=== PATIENT | male | born 1945 | race Caucasian/White ===

== ENCOUNTER 2018-08-31 10:14 | Day surgery (SDC) | payer MEDICARE, OTHER ==
[2018-08-31 11:02] VITALS: RESP 16; TEMP 98.7
[2018-08-31] MEDS: LACTATED RINGERS 1,000 ML IV SCH ×2 (11:03→11:04)
[2018-08-31] MEDS ORDERED: PROPOFOL 10 MG/ML 20 ML VIAL IV ONE (11:05)
--- NOTE | 2018-08-31 11:22 | P.PCN ---
Date of Procedure: 08/31/18 Procedure(s) Performed: Patient is a 69 year-old s white male, scheduled for flexible sigmoidoscopy as part of follow-up of a large distal rectal polyp that was noted on a colonoscopy done 2 months ago. Biopsies showed villous adenoma. Patient is a symptomatic. Preoperative diagnosis: Follow-up distal rectal polyp Procedure performed: Flexible sigmoidoscopy with biopsy and snare polypectomy Anesthesia MAC Description of procedure: The patient was brought into the endoscopy unit IV conscious sedation was administered by anesthesia and continuous monitoring. Initial digital rectal examination was normal. The Olympus CF 160 video colonoscope was then inserted into the rectum and gradually advanced to the splenic flexure. Careful examination was performed as the scope was gradually being withdrawn. there are scattered sigmoid diverticulosis seen. There was mild patchy areas of erythema noted in the sigmoid colon consistent with colitis and biopsies were done from this area. The rectum appeared normal and retroflexion there was a 5 mm residual polyp at the site of previous polypectomy just proximal to the dentate line and this was removed by snare and complete polypectomy was performed. There was no other residual polyp identified. Patient tolerated the procedure well. Impression: a) 5 mm residual polyp in the distal rectum at the site of previous polypectomy, status post snare polypectomy b) Mild sigmoid colitis c) scattered sigmoid diverticulosis Recommendations: Findings of this examination were discussed with the patient as well as his family. He was advised to follow with the biopsy results. He can have a repeat of colonoscopy in 3 years.
[2018-08-31 11:35] VITALS: BP 151/87; PULSE 62
== END 2018-08-31 11:55 | disposition home or self-care (01) ==
LOC: ORWHC2ENDO 10:14
PROVIDERS: ATTEND Internal Medicine Gastroenterology
DX: K62.1 Rectal polyp (principal); K50.10 Crohn's disease of large intestine without complications; K57.30 Diverticulosis of large intestine without perforation or abscess without bleeding; J44.9 Chronic obstructive pulmonary disease, unspecified; Z79.899 Other long term (current) drug therapy
CPT/HCPCS: 88305; 45331; 45338; J2704

== ENCOUNTER 2019-01-20 16:18 | Emergency (ER) | payer OTHER, MEDICARE, BC ==
--- NOTE | 2019-01-20 17:44 | ED ---
General Adult HPI - General Source: patient, RN notes reviewed, old records reviewed Mode of arrival: ambulatory Limitations: no limitations <Stanley Fairbanks - Last Filed: 01/20/19 18:23> <Cecilia Thakur - Last Filed: 01/22/19 00:21> - General Chief complaint: Neck Pain/Injury Stated complaint: Fall-4/5 ft Time Seen by Provider: 01/20/19 16:47 - History of Present Illness Initial comments: 73-year-old male patient is ED for chief complaint of possible cervical spinal fracture. Patient reports that approximately one week ago he fell down 4 steps off a ladder. Patient reports that he landed on his buttock region, and then hit his head. Patient reports that he did have a sore neck. Patient states that [facility] due to the pain. At urgent care today he had a plain film of the cervical spine performed. Reportedly the lead maintenance technician was concerned about a C1 fracture referred him to the ER. Patient denies any use of blood thinners. Patient denies any weakness or paresthesias in the upper or lower extremities. She reports that his chief complaint is a sore neck. Denies any other complaints at this time. Systemic: Pt denies fatigue, fever/chills, rash. Pt denies weakness, night sweats, weight loss. Neuro: Pt denies headache, visual disturbances, syncope or pre-syncope. HEENT: Pt denies ocular discharge or irritation, otalgia, rhinorrhea, pharyngitis or notable lymphadenopathy. Cardiopulmonary: Pt denies chest pain, SOB, heart palpitations, dyspnea on exertion. Abdominal/GI: Pt denies abdominal pain, n/v/d. : Pt denies dysuria, burning w/ urination, frequency/urgency. Denies new onset urinary or bowel incontinence. MSK: Pt denies myalgia, loss of strength or function in extremities. Neuro: Pt denies new onset weakness, paresthesias. (Stanley Fairbanks) - Related Data Home Medications Medication Instructions Recorded Confirmed Albuterol Inhaler [Ventolin Hfa 1 puff INHALATION DIRECTED PRN 08/29/18 08/31/18 Inhaler] Atorvastatin [Lipitor] 20 mg PO HS 08/29/18 08/31/18 Cholecalciferol [Vitamin D3 (25 1,000 unit PO DAILY 08/29/18 08/31/18 Mcg = 1000 Iu)] Ferrous Sulfate [Iron (65 MG 1 tab PO DAILY 08/29/18 08/31/18 Elemental)] Previous Rx's Medication Instructions Recorded Cyclobenzaprine [Flexeril] 1 - 2 tab PO TID #20 tablet 01/20/19 Allergies Allergy/AdvReac Type Severity Reaction Status Date / Time No Known Allergies Allergy Verified 01/20/19 16:31 Review of Systems ROS Other: All systems not noted in ROS Statement are negative. <Stanley Fairbanks - Last Filed: 01/20/19 18:23> ROS Other: All systems not noted in ROS Statement are negative. <Cecilia Thakur - Last Filed: 01/22/19 00:21> ROS Statement: Those systems with pertinent positive or pertinent negative responses have been documented in the HPI. Past Medical History Past Medical History: COPD, Hyperlipidemia, Osteoarthritis (OA) Additional Past Medical History / Comment(s): ESOPHAGUS, DILATATION History of Any Multi-Drug Resistant Organisms: None Reported Past Surgical History: Hernia Repair, Orthopedic Surgery, Tonsillectomy Additional Past Surgical History / Comment(s): RIGHT ANKLE REPLACED. BILATERAL KNEES REPLACED. BILATERAL CATARACTS. HERNIA RIGHT INQUINAL. Past Anesthesia/Blood Transfusion Reactions: No Reported Reaction Past Psychological History: No Psychological Hx Reported Smoking Status: Former smoker Past Alcohol Use History: Occasional Past Drug Use History: None Reported <Stanley Fairbanks - Last Filed: 01/20/19 18:23> General Exam Limitations: no limitations <Stanley Fairbanks - Last Filed: 01/20/19 18:23> - General Exam Comments Initial Comments: Constitutional: NAD, AOX3, Pt has pleasant affect. HEENT: NC/AT, trachea midline, neck supple, no lymphadenopathy. Posterior pharynx non erythematous, without exudates. External ears appear normal, without discharge. Mucous membranes moist. Eyes PERRLA, EOM intact. There is no scleral icterus. No pallor noted. Cardiopulmonary: RRR, no murmurs, rubs or gallops, no JVD noted. Lungs CTAB in anterior and posterior su. No peripheral edema. Abdominal exam: Abdomen soft and non-distended. Abdomen non-tender to palpation in all 4 quadrants. Bowel sounds active in LLQ. No hepatosplenomegaly. No ecchymosis Neuro: CN II-XII intact. No nuchal rigidity. No raccon eyes, no casas sign, no hemotympanum. Mild amount of paracervical tenderness, not midline. MSK: No posterior calf tenderness bilaterally, homans sign negative bilaterally. Posterior tibialis and radial pulse +2 bilaterally. Sensation intact in upper and lower extremities. Full active ROM in upper and lower extremities, 5/5 stregnth. (Stanley Fairbanks) Course Vital Signs 01/20/19 01/20/19 16:29 18:20 Temperature 97.9 F 98.2 F Pulse Rate 84 73 Respiratory 20 16 Rate Blood Pressure 150/90 144/79 O2 Sat by Pulse 99 96 Oximetry Medical Decision Making <Stanley Fairbanks - Last Filed: 01/20/19 18:23> <Cecilia Thakur - Last Filed: 01/22/19 00:21> - Medical Decision Making 73-year-old male patient is ED for chief complaint of possible cervical spinal fracture. Patient reports that approximately one week ago he fell down 4 steps off a ladder. Patient reports that he landed on his buttock region, and then hit his head. Patient reports that he did have a sore neck. Patient states that [facility] care due to the pain. At urgent care today he had a plain film of the cervical spine performed. Reportedly the lead maintenance technician was concerned about a C1 fracture referred him to the ER. Patient denies any use of blood thinners. Patient denies any weakness or paresthesias in the upper or lower extremities. She reports that his chief complaint is a sore neck. Denies any other complaints at this time. Patient vital signs stable, afebrile. Physical exam displayed normal neurologic exam, mild amount of paracervical tenderness. CT brain C- spine demonstrate acute process. No fracture. Patient pain in the muscular in nature. Patient started muscle relaxers. Patient discharged with follow-up with primary care for appear to return to ER if condition worsens. Case discussed with Dr. Thakur. (Stanley Fairbanks) I was available for consultation in the emergency department. The history and physical exam were done by the midlevel provider. I was consulted for this patients care. I reviewed the case with the midlevel provider and based on their presentation of the patient, I agree with the assessment, medical decision making and plan of care as documented. Chart was dictated using V[employer] dictation software. Attempts were made to ciarra ect any dictation errors however some typographical errors may persist. (Cecilia Thakur) Disposition Is patient prescribed a controlled substance at d/c from ED?: No <Stanley Fairbanks - Last Filed: 01/20/19 18:23> <Cecilia Thakur - Last Filed: 01/22/19 00:21> Clinical Impression: Cervical strain Disposition: HOME SELF-CARE Condition: Stable Instructions (If sedation given, give patient instructions): Cervical Sprain (ED) Additional Instructions: Patient to adhere to previously discussed treatment plan and will take medication(s) as directed. Patient to follow up with PCP in 1-2 days. Patient to return to ED if symptoms do not improve. Use muscle relaxers as needed. Return to ER if condition worsens. Prescriptions: Cyclobenzaprine [Flexeril] 1 - 2 tab PO TID #20 tablet Referrals: [facility] [Primary Care Provider] - 1-2 days
--- NOTE | 2019-01-20 18:17 | CT ---
EXAMINATION TYPE: CT brain cspine wo con DATE OF EXAM: 01/20/2019 COMPARISON: None HISTORY: Fall 1 week ago, possible cspine fx. Headache. Neck pain. CT DLP: 1434.1 mGycm Automated exposure control for dose reduction was used. TECHNIQUE: CT scan of the head and cervical spine are performed without contrast. FINDINGS: There is mild cerebral cortical atrophy. There is no mass effect nor midline shift. There is no sign of intracranial hemorrhage. The calvarium is intact. Cervical vertebra have normal alignment. There is degenerative disc space narrowing at C5-6 C6-7. The re is moderate hypertrophic anterior spurring in the mid and lower cervical spine. The facet joints a re intact. There is multilevel hypertrophic cervical facet arthropathy. The skull base is intact. IMPRESSION: Cerebral atrophy. No acute intracranial abnormality. Multilevel cervical spondylotic changes. No fracture seen.
[2019-01-20 18:24] VITALS: BP 144/79; PULSE 73; RESP 16; TEMP 98.2
[2019-01-20] MEDS ORDERED: CYCLOBENZAPRINE 10MG STARTER 3 TAB BTL PO STA (18:26)
== END 2019-01-20 18:30 | disposition home or self-care (01) ==
LOC: EC 16:18
DX: S16.1XXA Strain of muscle, fascia and tendon at neck level, initial encounter (principal); J44.9 Chronic obstructive pulmonary disease, unspecified; E78.5 Hyperlipidemia, unspecified; M19.90 Unspecified osteoarthritis, unspecified site; Z87.891 Personal history of nicotine dependence; Z79.899 Other long term (current) drug therapy; Z96.653 Presence of artificial knee joint, bilateral; Z96.661 Presence of right artificial ankle joint; W11.XXXA Fall on and from ladder, initial encounter; Y92.009 Unspecified place in unspecified non-institutional (private) residence as the place of occurrence of the external cause
CPT/HCPCS: 70450; 72125; 99284

== ENCOUNTER → 2019-01-26 | Outpatient (CLI) | payer OTHER ==
--- NOTE | 2019-01-26 15:37 | MR ---
EXAMINATION TYPE: MR shoulder RT wo con DATE OF EXAM: 01/26/2019 COMPARISON: None HISTORY: Rt shoulder pain x 1-2 yrs, fell off ladder TECHNIQUE: Multiplanar, multisequence imaging of the right shoulder is performed without contrast. FINDINGS: Rotator Cuff: There is a focal full-thickness tear of the supraspinatus measuring 0.6 x 0.6 cm an add itional full thickness tear of the insertional fibers measuring 1.2 x 1.3 cm. Few insertional fibers remain as well as heterogenous signal in the expected location of the tendon secondary to hemorrhage and/or proteinaceous debris. The infraspinatus is intact however there is moderate tendinopathy with alteration of the intrinsic s ignal of the insertional fibers. The teres minor is intact and unremarkable in signal and muscle volu me. The subscapularis is also intact with moderate arthropathy. Acromioclavicular Joint: There is moderate acromioclavicular arthropathy resulting in internal imping ement of the supraspinatus as there is signal alteration of the myotendinous junction of the supraspi natus. Arthropathy is demonstrated as subchondral cyst formation, marginal osteophytes and capsular h ypertrophy. Glenohumeral Joint: Small osteophytes and subcortical cysts are seen of the glenohumeral joint with c hondral irregularity, mild arthropathy. Labrum: Severe limitation in evaluation of the labrum given arthrographic technique and motion on the axial images. There is at least labral degeneration of the posterior superior glenoid labrum althoug h tear is suspected. Biceps Tendon: The long head of biceps is in normal location within bicipital groove. There is attenu ation of the intra-articular portion along the biceps compatible with moderate tendinosis. Bone marrow signal: No focal abnormal marrow signal is appreciated. Other: Small amount of fluid is seen within the subcoracoid and subdeltoid/subacromial bursa. IMPRESSION: 1. Full-thickness tears of the supraspinatus measuring 1.2 x 1.3 cm and 0.6 x 0.6 cm with few inserti onal fibers remaining and increased signal in the expected location of the distal tendon indicating h emorrhage and/or proteinaceous debris. 2. Moderate tendinopathy of the infraspinatus, subscapularis, and intra-articular portion along the b iceps tendon. 3. Moderate acromioclavicular arthropathy resulting in internal impingement of the supraspinatus with mild signal alteration of the myotendinous junction. 4. Severe limitation of the glenoid labrum given patient motion and nonarthrographic technique. At le ast labral degeneration of the posterior superior glenoid labrum although tear is suspected. 5. Small amount of fluid in the subcoracoid and subacromial/subdeltoid bursa that may clinically ciarra elate with bursitis. 6. Mild glenohumeral arthropathy.
== END ==
LOC: RADMRIMAIN 11:14
PROVIDERS: ATTEND Nurse Practitioner Acute Care
DX: M75.101 Unspecified rotator cuff tear or rupture of right shoulder, not specified as traumatic (principal); M77.8 Other enthesopathies, not elsewhere classified; M12.811 Other specific arthropathies, not elsewhere classified, right shoulder

== ENCOUNTER → 2020-03-28 | Outpatient (CLI) | payer OTHER ==
[~2020-03-28] MED LIST: IODINE/POTASS IOD (LUGOLS) BOTTLE TOPICAL ONE
--- NOTE | 2020-03-29 18:48 | NM ---
EXAMINATION TYPE: NM DatScan Brain SPECT DATE OF EXAM: 03/28/2020 COMPARISON: NONE HISTORY: Tremors TECHNIQUE: 10 drops of Lugol's solution was administered 1 hour prior to injection as a thyroid bloc noe agent. After the administration of 4.19 mCi I-123 Ioflupane DaTscan. Images obtained 3 hours p ost injection. SPECT images of the brain were acquired with axial and coronal reconstructions. FINDINGS: The axial SPECT images demonstrate increased background activity and reduced activity withi n the bilateral striata. IMPRESSION: Abnormal appearance highly suggestive of idiopathic Parkinson's disease or Parkinsonian s yndrome.
== END | disposition home or self-care (01) ==
LOC: RADNMMAIN 10:53
PROVIDERS: ATTEND Psychiatry & Neurology Neurology
DX: R90.89 Other abnormal findings on diagnostic imaging of central nervous system (principal); G25.0 Essential tremor
CPT/HCPCS: 78803; A9584

== ENCOUNTER → 2020-08-16 | Outpatient (CLI) | payer MEDICARE, BC ==
[2020-08-16 13:25] LABS: Basophils % (A) 0 %; Eosinophils # (A) 0.1 k/uL (0-0.7); Eosinophils % (A) 1 %; HCT 35.2 % (39.0-53.0); HGB 11.8 gm/dL (13.0-17.5); Lymphocytes % (A) 10 %; MCH 32.9 pg (25.0-35.0); MCHC 33.6 g/dL (31.0-37.0); MCV 98.1 fL (80.0-100.0); Mean Platelet Volume 7.6; Monocytes # (A) 0.6 k/uL (0-1.0); Monocytes % (A) 6 %; Neutrophils # (A) 7.8 k/uL (1.3-7.7); Neutrophils % (A) 80 %; Platelet Count 427 k/uL (150-450); RBC 3.59 m/uL (4.30-5.90); WBC 9.8 k/uL (3.8-10.6)
[2020-08-16 13:43] LABS: ALT 119 U/L (4-49); AST 126 U/L (17-59); African American GFR (CKD) 68 (>60 ml/min/1.73 sqM); Albumin 3.6 g/dL (3.5-5.0); Albumin/Globulin Ratio 0.8; Alkaline Phosphatase 800 U/L (38-126); Anion Gap 12 mmol/L; Blood Urea Nitrogen 20 mg/dL (9-20); Carbon Dioxide 27 mmol/L (22-30); Chloride 101 mmol/L (98-107); Globulin 4.6 g/dL; Glucose 129 mg/dL (74-99); Non-African American GFR(CKD) 58 (>60 ml/min/1.73 sqM); Potassium 5.2 mmol/L (3.5-5.1); Sodium 140 mmol/L (137-145); Total Bilirubin 2.3 mg/dL (0.2-1.3); Total Protein 8.2 g/dL (6.3-8.2)
[2020-08-16 23:22] LABS: % Iron Saturation 6.69 (15.00-50.00); Iron 16 ug/dL (65-175); Total Iron Binding Capacity 239 ug/dL (228-460)
== END | disposition home or self-care (01) ==
LOC: LABWHC1 12:37
PROVIDERS: ATTEND Nurse Practitioner Acute Care
DX: Z51.81 Encounter for therapeutic drug level monitoring (principal); E55.9 Vitamin D deficiency, unspecified; E61.1 Iron deficiency
CPT/HCPCS: 36415; 80053; 82306; 82607; 83540; 83550; 84207; 85025

== ENCOUNTER 2020-08-27 09:26 | Emergency (ER) | payer MEDICARE, BC ==
[2020-08-27 09:33] VITALS: RESP 18; TEMP 99
[2020-08-27] MEDS ORDERED: SODIUM CHLORIDE 0.9% 1,000 ML IV STA (09:33)
--- NOTE | 2020-08-27 09:37 | ED ---
General Adult HPI - General Chief complaint: Weakness Stated complaint: weakness Time Seen by Provider: 08/27/20 09:29 Source: patient, EMS, RN notes reviewed Mode of arrival: EMS Limitations: no limitations - History of Present Illness Initial comments: Patient is a pleasant 74-year-old male presenting to the emergency Department with complaints of generalized weakness. Onset of symptoms was a couple months ago. Patient has decreased appetite and decreased oral intake. Patient feels generally weak. No isolated area of weakness. Patient states he is now using a walker the past few days which is new for him. No confusion. No fever. No dysuria. - Related Data Home Medications Medication Instructions Recorded Confirmed Albuterol Inhaler (Mhu) [Ventolin 1 puff INHALATION DIRECTED PRN 08/29/18 08/31/18 Hfa Inhaler (Mhu)] Atorvastatin [Lipitor] 20 mg PO HS 08/29/18 08/31/18 Cholecalciferol [Vitamin D3 (25 1,000 unit PO DAILY 08/29/18 08/31/18 Mcg = 1000 Iu)] Ferrous Sulfate [Iron (65 MG 1 tab PO DAILY 08/29/18 08/31/18 Elemental)] Previous Rx's Medication Instructions Recorded Cyclobenzaprine [Flexeril] 1 - 2 tab PO TID #20 tablet 01/20/19 Allergies Allergy/AdvReac Type Severity Reaction Status Date / Time No Known Allergies Allergy Verified 08/27/20 09:33 Review of Systems ROS Statement: Those systems with pertinent positive or pertinent negative responses have been documented in the HPI. ROS Other: All systems not noted in ROS Statement are negative. Constitutional: Denies: fever Eyes: Denies: eye pain ENT: Denies: ear pain Respiratory: Denies: cough Cardiovascular: Denies: chest pain Endocrine: Reports: fatigue, polydipsia. Denies: polyuria Gastrointestinal: Reports: nausea. Denies: abdominal pain, vomiting Genitourinary: Denies: urgency Musculoskeletal: Denies: back pain Skin: Denies: rash Neurological: Reports: as per HPI. Denies: headache, confusion Past Medical History Past Medical History: COPD, Hyperlipidemia, Osteoarthritis (OA) Additional Past Medical History / Comment(s): ESOPHAGUS, DILATATION, parkinsons. History of Any Multi-Drug Resistant Organisms: None Reported Past Surgical History: Hernia Repair, Orthopedic Surgery, Tonsillectomy Additional Past Surgical History / Comment(s): RIGHT ANKLE REPLACED. BILATERAL KNEES REPLACED. BILATERAL CATARACTS. HERNIA RIGHT INQUINAL. Past Anesthesia/Blood Transfusion Reactions: No Reported Reaction Past Psychological History: No Psychological Hx Reported Smoking Status: Never smoker Past Alcohol Use History: Occasional Past Drug Use History: None Reported General Exam Limitations: no limitations General appearance: alert, in no apparent distress Head exam: Present: atraumatic Eye exam: Present: normal appearance, PERRL, EOMI ENT exam: Present: mucous membranes dry Neck exam: Present: normal inspection. Absent: tenderness Respiratory exam: Present: normal lung sounds bilaterally Cardiovascular Exam: Present: regular rate, normal rhythm GI/Abdominal exam: Present: soft. Absent: tenderness Extremities exam: Present: normal inspection Neurological exam: Present: alert, oriented X3, CN II-XII intact. Absent: motor sensory deficit Expanded Neurological exam: Present: protecting the airway Patient oriented to: Present: person, place, time Speech: Present: fluid speech Cranial nerves: EOM's Intact: Normal Motor strength exam: RUE: 5, LUE: 5, RLE: 5, LLE: 5 Eye Response: (4) open spontaneously Motor Response: (6) obeys commands Verbal Response: (5) oriented Psychiatric exam: Present: normal affect, normal mood Skin exam: Present: normal color Course Vital Signs 08/27/20 09:27 Temperature 99 F Pulse Rate 89 Respiratory 18 Rate Blood Pressure 103/65 - Reevaluation(s) Reevaluation #1: 08/27/20 10:32 Call received from radiologist with concern regarding potential intercranial hemorrhage with questionable underlying mass. CT reviewed. Patient reevaluated and updated. Transfer process has started. 08/27/20 10:[address] Mackey at [facility], who will accept transfer. EKG Findings - EKG Comments: EKG Findings:: Normal sinus rhythm with rate of 85. LA 170. QRS 84. QT 350. QTC 416. Normal axis. Normal QRS. No acute ST change. Medical Decision Making - Lab Data Result diagrams: 08/27/20 09:39 08/27/20 09:39 Lab Results 08/27/20 08/27/20 08/27/20 Range/Units 09:39 09:39 09:39 WBC 12.1 H (3.8-10.6) k/uL RBC 2.98 L (4.30-5.90) m/uL Hgb 9.5 L D (13.0-17.5) gm/dL Hct 28.2 L (39.0-53.0) % MCV 94.8 (80.0-100.0) fL MCH 32.1 (25.0-35.0) pg MCHC 33.8 (31.0-37.0) g/dL RDW 12.6 (11.5-15.5) % Plt Count 284 (150-450) k/uL MPV 7.9 Neutrophils % 91 % Lymphocytes % 4 % Monocytes % 4 % Eosinophils % 0 % Basophils % 0 % Neutrophils # 10.9 H (1.3-7.7) k/uL Lymphocytes # 0.5 L (1.0-4.8) k/uL Monocytes # 0.4 (0-1.0) k/uL Eosinophils # 0.0 (0-0.7) k/uL Basophils # 0.0 (0-0.2) k/uL PT 12.1 H (9.0-12.0) sec INR 1.2 H (<1.2) APTT 25.2 (22.0-30.0) sec Sodium 134 L (137-145) mmol/L Potassium 4.0 (3.5-5.1) mmol/L Chloride 102 (98-107) mmol/L Carbon Dioxide 22 (22-30) mmol/L Anion Gap 10 mmol/L BUN 20 (9-20) mg/dL Creatinine 1.17 (0.66-1.25) mg/dL Est GFR (CKD-EPI)AfAm 70 (>60 ml/min/1.73 sqM) Est GFR (CKD-EPI)NonAf 61 (>60 ml/min/1.73 sqM) Glucose 125 H (74-99) mg/dL Plasma Lactic Acid Everett (0.7-2.0) mmol/L Calcium 8.8 (8.4-10.2) mg/dL Phosphorus 3.3 (2.5-4.5) mg/dL Magnesium 1.9 (1.6-2.3) mg/dL Total Bilirubin 2.2 H (0.2-1.3) mg/dL AST 128 H (17-59) U/L ALT 80 H (4-49) U/L Alkaline Phosphatase 845 H (38-126) U/L Total Protein 6.7 (6.3-8.2) g/dL Albumin 2.7 L (3.5-5.0) g/dL 08/27/20 Range/Units 09:39 WBC (3.8-10.6) k/uL RBC (4.30-5.90) m/uL Hgb (13.0-17.5) gm/dL Hct (39.0-53.0) % MCV (80.0-100.0) fL MCH (25.0-35.0) pg MCHC (31.0-37.0) g/dL RDW (11.5-15.5) % Plt Count (150-450) k/uL MPV Neutrophils % % Lymphocytes % % Monocytes % % Eosinophils % % Basophils % % Neutrophils # (1.3-7.7) k/uL Lymphocytes # (1.0-4.8) k/uL Monocytes # (0-1.0) k/uL Eosinophils # (0-0.7) k/uL Basophils # (0-0.2) k/uL PT (9.0-12.0) sec INR (<1.2) APTT (22.0-30.0) sec Sodium (137-145) mmol/L Potassium (3.5-5.1) mmol/L Chloride (98-107) mmol/L Carbon Dioxide (22-30) mmol/L Anion Gap mmol/L BUN (9-20) mg/dL Creatinine (0.66-1.25) mg/dL Est GFR (CKD-EPI)AfAm (>60 ml/min/1.73 sqM) Est GFR (CKD-EPI)NonAf (>60 ml/min/1.73 sqM) Glucose (74-99) mg/dL Plasma Lactic Acid Everett 0.9 (0.7-2.0) mmol/L Calcium (8.4-10.2) mg/dL Phosphorus (2.5-4.5) mg/dL Magnesium (1.6-2.3) mg/dL Total Bilirubin (0.2-1.3) mg/dL AST (17-59) U/L ALT (4-49) U/L Alkaline Phosphatase (38-126) U/L Total Protein (6.3-8.2) g/dL Albumin (3.5-5.0) g/dL - Radiology Data Radiology results: image reviewed (As discussed with radiologist left frontal 16 mm area of possible focal hemorrhage with possible underlying mass. Chest x- ray without definitive acute abnormality. Cannot exclude nodule versus vessel on end left suprahilar.) Disposition Clinical Impression: Intracranial hemorrhage Disposition: OTHER INSTITUTION NOT DEFINED Condition: Serious Is patient prescribed a controlled substance at d/c from ED?: No Referrals: Darrel iDaz PT [REFERRING] - 1-2 days Time of Disposition: 10:38 - Out of Hospital Transfer - Req. Specs Out of Hospital Transfer - Requested Specifics: Other Emergency Center
[2020-08-27 09:59] LABS: Basophils % (A) 0 %; Eosinophils % (A) 0 %; HCT 28.2 % (39.0-53.0); Lymphocytes # (A) 0.5 k/uL (1.0-4.8); Lymphocytes % (A) 4 %; MCH 32.1 pg (25.0-35.0); MCHC 33.8 g/dL (31.0-37.0); MCV 94.8 fL (80.0-100.0); Mean Platelet Volume 7.9; Monocytes # (A) 0.4 k/uL (0-1.0); Monocytes % (A) 4 %; Neutrophils # (A) 10.9 k/uL (1.3-7.7); Neutrophils % (A) 91 %; Platelet Count 284 k/uL (150-450); RBC 2.98 m/uL (4.30-5.90); RDW 12.6 % (11.5-15.5); WBC 12.1 k/uL (3.8-10.6)
[2020-08-27 10:04] LABS: HGB 9.5 gm/dL (13.0-17.5)
[2020-08-27 10:11] LABS: Albumin 2.7 g/dL (3.5-5.0); Calcium 8.8 mg/dL (8.4-10.2); Magnesium 1.9 mg/dL (1.6-2.3); Phosphorus 3.3 mg/dL (2.5-4.5); Total Bilirubin 2.2 mg/dL (0.2-1.3); Total Protein 6.7 g/dL (6.3-8.2)
--- NOTE | 2020-08-27 10:22 | CT ---
EXAMINATION TYPE: CT brain wo con DATE OF EXAM: 08/27/2020 COMPARISON: CT brain 01/20/2019 HISTORY: Weakness CT DLP: 1106.4 mGycm Automated exposure control for dose reduction was used. Helical imaging through the brain. FINDINGS: At the left frontal lobe medially centered near the jean-white junction there is a focal spherical de nsity measuring 16 mm without significant local edematous change or mass effect. Hounsfield unit nikolas urement approximately 73. Periventricular white matter again shows patchy low attenuation. There is c ortical atrophy. There is some inflammatory change in the sphenoid sinus on the right. IMPRESSION: FINDINGS MAY REPRESENT FOCAL HEMORRHAGE, DIFFICULT TO EXCLUDE AN UNDERLYING MASS, FOLLOW-UP IS RECOMM ENDED. Case discussed with Dr. Mcgee telephonically at the time of performance of the exam. Additiona l findings above. A Document Only message has been documented for Richard Mcgee DO in the [employer] [facility] system on 08/27/2020 10:19 AM, Message ID [id number].
--- NOTE | 2020-08-27 10:30 | XR ---
EXAMINATION TYPE: XR chest 2V DATE OF EXAM: 08/27/2020 COMPARISON: NONE HISTORY: 74-year-old male with weakness. History of Parkinson's with no motivation or energy TECHNIQUE: Frontal and lateral views of the chest are obtained. FINDINGS: Heart size is within normal limits. No focal consolidation, pneumothorax or pleural effusi on. The tip of the lateral right costophrenic angle is not entirely visualized. There is a rounded no dule in the left suprahilar region which most likely represents a vessel on and measuring 9 mm but an underlying pulmonary nodule is not excluded. If clinically indicated, CT of the chest could be obtai taty. Degenerative changes of the thoracic spine are seen. IMPRESSION: 1. No acute pulmonary disease. 2. There is a 9 mm left suprahilar nodule most suggestive of a vessel on end however, no underlying p ulmonary nodules not excluded. If clinically indicated, a CT of the chest could be obtained.
[2020-08-27 10:34] LABS: INR 1.2 (<1.2); Partial Thromboplastin Time 25.2 sec (22.0-30.0); Prothrombin Time 12.1 sec (9.0-12.0)
[2020-08-27 10:48] VITALS: BP 90/60; PULSE 75
== END 2020-08-27 11:49 | disposition other institution (70) ==
LOC: EC 09:26
DX: I62.9 Nontraumatic intracranial hemorrhage, unspecified (principal); J44.9 Chronic obstructive pulmonary disease, unspecified; M19.90 Unspecified osteoarthritis, unspecified site; E78.5 Hyperlipidemia, unspecified; Z90.09 Acquired absence of other part of head and neck
CPT/HCPCS: 70450; 71046; 80053; 83605; 83735; 84100; 84443; 84484; 85025; 85610; 85730; 93005; 99285